=== PATIENT | female | born 1940 | race Caucasian/White ===

== ENCOUNTER 2020-04-10 03:55 | Emergency (ER) | payer MEDICARE, OTHER ==
[~2020-04-10] VITALS: Ht 162.6 cm; Wt 74.8 kg
--- OUTSIDE RECORDS SUMMARY | ~2020-04-10 | XMS | Clinical Summary ---
Demographics + + + | Address | [address] | | | [place] [address] | + + + | Home Phone | | + + + | Preferred Language | Unknown | + + + | Marital Status | | + + + | Christianity Affiliation | Unknown | + + + | Race | Unknown | + + + | Ethnic Group | Unknown | + + + Author + + + | Author | [facility] | | | and [place] | + + + | Organization | [facility] | | | and [place] [...] Team Providers + +------+ + | Care Cattle Knocker Name | Role | Phone | + [...] | | + + +-------+ + | Adult Annual | | | | | Wellness Visit | 8 | | | + + +-------+ + | Vaccine: Influenza | | | | | (Season Ended) | 0 | | | + + [...] + +--------+ | MEDICARE | MEDICA | [id number] | 04/06/20 | [phone] | | Medica | | | RE | | 07-Pre | 5 | | re | | | PART A | | sent | | | | | | AND B | | | | | | + +--------+ +--------+ + +--------+ | MODA | MODA | [id number] | 10/07/19 | [phone] | [address] | Indemn | | | HEALTH | | 17-Pre | 9 | [phone] | ity | | | MDCR | | sent | | [place], | | | | [place] | | | | [place] [address] | | + +--------+ +--------+ + +--------+ [...] al/Fam | | 1940 | [phone] | [place] | | | savita | | | 0 (Home) | [phone] | + +--------+ +--------+ + + Advance Directives + + + + + | Type | Date Recorded | Patient | Explanation | | | | Senior Project Engineer | | + + + + + | Power of | | | | | Mountain Services Manager | | | | + + + + + | Advance | | | | | Directive | | | | + + + + +"
--- OUTSIDE RECORDS SUMMARY | ~2020-04-10 | XMS | Encounter Summary ---
Demographics + + + | Address | [address] | | | [place] [address] | + + + | Home Phone | | + + + | Preferred Language | Unknown | + + + | Marital Status | | + + + | Pentecostal Affiliation | Unknown | + + + | Race | Unknown | + + + | Ethnic Group | Unknown | + + + Author + + + | Author | [facility] | | | and [place] | + + + | Organization | [facility] | | | and [place] | [...] Team Providers + +------+ + | Care Electrical Logging Operator Name | Role | Phone | + +------+ + | Allie Llanes | PCP | | | PA | | | + +------+ + Encounter Details +--------+---------+ + + + | Date | Type | Department | Care Team | Description | +--------+---------+ + + + | 05/01/ | Office | [facility] | Estefany Parikh [place] | Sensorineural | | 2018 | Visit | AUDIOLOGY AND | [facility] [address] | hearing loss (SNHL) | | | | HEARING AID SERVICES | [address] | of both ears | | | | [address] | [place] [address] | (Primary Dx) | | | | [address] [facility] | [phone] | | | | | [place] [address] | | | | | | [phone] | | | +--------+---------+ + + + [...] documented as of this encounter Progress Notes SanthoshEstefany childers, CCC-A - 05/01/2018 1:30 PM PDTReferring Provider: [...]
[~2020-04-10 03:55] MED LIST: ALLOPURINOL300 MG PO; ASPIRIN EC325 MG PO; CALCIUM500 M1 PO; CINNAMON500 MG PO; ESSENTIAL DAIL1 EACH PO; FELODIPINE ER10 MG PO; GLYCOTROL CAPS1 EACH PO; LOVASTATIN40 MG PO; LOVAZA1 GM PO; NIACIN500 MG PO; OMEPRAZOLE20 MG PO; TRIAMTERENE-HC1 EAC1 PO; VITAMIN C500 MG/15 PO
[2020-04-10] MEDS ORDERED: ASPIR 8181 MG PO (04:13)
[2020-04-10] MEDS ORDERED: LIPITOR20 MG PO (04:14)
[2020-04-10] MEDS ORDERED: PREDNISONE20 MG PO (04:26)
== END 2020-04-10 04:38 | disposition home or self-care (01) ==
LOC: ED 03:55
DX: M10.9 Gout, unspecified (principal); I10 Essential (primary) hypertension; E78.5 Hyperlipidemia, unspecified; K21.9 Gastro-esophageal reflux disease without esophagitis; Z87.891 Personal history of nicotine dependence; Z79.899 Other long term (current) drug therapy
CPT/HCPCS: 99283; J7512

== ENCOUNTER 2020-06-21 06:17 | Emergency (ER) | payer MEDICARE, OTHER ==
[~2020-06-21] VITALS: Ht 162.6 cm; Wt 70.3 kg
--- OUTSIDE RECORDS SUMMARY | ~2020-06-21 | XMS | Encounter Summary ---
Demographics + + + | Address | [address] | | | [place] [address] | + + + | Home Phone | | + + + | Preferred Language | Unknown | + + + | Marital Status | | + + + | Bahai Affiliation | Unknown | + + + | Race | White | + + + | Ethnic Group | Unknown | + + + Author + + + | Author | [facility] | | | and [place] | + + + | Organization | [facility] | | | and [place] [...] Team Providers + +------+ + | Care Magazine Supervisor Name | Role | Phone | + +------+ + | Allie Llanes | PCP | | | PA | | | + +------+ + Encounter Details +--------+---------+ + + + | Date | Type | Department | Care Team | Description | +--------+---------+ + + + | 05/01/ | Office | [facility] | Estefany Parikh MS | Sensorineural | | 2018 | Visit | AUDIOLOGY AND | [facility] [address] | hearing loss (SNHL) | | | | HEARING AID SERVICES | [address] | of both ears | | | | [address] | [place] [address] | (Primary Dx) | | | | [address] [facility] | [phone] | | | | | [place] [address] | | | | | | [phone] | | | +--------+---------+ + + + [...]
--- OUTSIDE RECORDS SUMMARY | ~2020-06-21 | XMS | Clinical Summary ---
Demographics + + + | Address | [address] | | | [place] [address] | + + + | Home Phone | | + + + | Preferred Language | Unknown | + + + | Marital Status | | + + + | Adventist Affiliation | Unknown | + + + | Race | White | + + + | Ethnic Group | Unknown | + + + Author + + + | Author | [facility] | | | and [place] | + + + | Organization | [facility] | | | and [...] Team Providers + +------+ + | Care Substation Mechanic Name | Role | Phone | + [...] + +--------+ | MEDICARE | MEDICA | [id number] | 04/06/20 | [phone] | | Medica | | | RE | | 07-Pre | 5 | | re | | | PART A | | sent | | | | | | AND B | | | | | | + +--------+ +--------+ + +--------+ | MODA | MODA | [id number] | 10/07/19 | [phone] | [address] | Indemn | | | HEALTH | | 17-Pre | 9 | [phone] | ity | | | MDCR | | sent | | [place], | | | | [place] | | | | [place] [address] | | + +--------+ +--------+ + +--------+ [...] [place] | | | 0 (Home) | [address] | + +--------+ +--------+ + + | Alexa Daniels | Person | Self | [birth year] | [address] | | | al/Fam | | 1940 | [phone] | [place] | | | [place] | | | 0 (Home) | [address] | + +--------+ +--------+ + + Advance Directives + + + + + | Type | Date Recorded | Patient | Explanation | | | | Director Data Architecture | | + + + + + | Power of | | | | | Case Finisher | | | | + + + + + | Advance | | | | | Directive | | | | + + + + +"
[~2020-06-21 06:17] MED LIST changes: +ASPIR 8181 MG PO; +LIPITOR20 MG PO; +PREDNISONE20 MG PO
[2020-06-21] MEDS ORDERED: ATORVASTATIN CA20 MG PO (06:31)
[2020-06-21] MEDS ORDERED: PREDNISONE20 MG PO (06:44)
== END 2020-06-21 07:03 | disposition home or self-care (01) ==
LOC: ED 06:17
DX: M10.9 Gout, unspecified (principal); I10 Essential (primary) hypertension; E78.5 Hyperlipidemia, unspecified; Z87.891 Personal history of nicotine dependence; Z79.899 Other long term (current) drug therapy; Z79.82 Long term (current) use of aspirin
CPT/HCPCS: 99283; J7512

== ENCOUNTER 2020-06-28 10:01 | Emergency (ER) | payer MEDICARE, OTHER ==
[~2020-06-28] VITALS: Ht 162.6 cm; Wt 70.3 kg
--- OUTSIDE RECORDS SUMMARY | ~2020-06-28 | XMS | Clinical Summary ---
Demographics + + + | Address | [address] | | | [place] [address] | + + + | Home Phone | | + + + | Preferred Language | Unknown | + + + | Marital Status | | + + + | Taoism Affiliation | Unknown | + + + | Race | White | + + + | Ethnic Group | Unknown | + + + Author + + + | Author | [facility] | | | and [place] | + + + | Organization | [facility] | | | and [place] | + + + | Address | Unknown | + + + | Phone | Unavailable | + + + Support + + +---------+ + | Name | Relationship | Address | Phone | + + +---------+ + | Wilbur Daniels | ECON | Unknown | | + + +---------+ + Care Team Providers + +------+ + | Care Cassandra Developer Name | Role | Phone | + +------+ + | Allie Llanes | PCP | | | PA | | | + +------+ + Allergies Not on File Medications Not on file Active Problems Not on file Social History + +-------+ +--------+------+ | Tobacco Use | Types | Packs/Day | Years | Date | | | | | Used | | + +-------+ +--------+------+ | Never Assessed | | | | | + +-------+ +--------+------+ + + + | Sex Assigned at | Date Recorded | | | | + + + | Not on file | | + + + Last Filed Vital Signs Not on file Plan of Treatment + + +-------+ + | Health Maintenance | Due Date | Last | Comments | | | | Done | | + + +-------+ + | Vaccine: | | | | | Dtap/Tdap/Td (1 - | 1 | | | | Tdap) | | | | + + +-------+ + | Vaccine: Zoster (1 | | | | | of 2) | 2 | | | + + +-------+ + | Breast Cancer | | | | | Screening | 7 | | | + + +-------+ + | Vaccine: | | | | | Pneumococcal 65+ (1 | 7 | | | | of 1 - PPSV23) | | | | + + +-------+ + | Vaccine: Influenza | | | | | (#1) | 0 | | | + + +-------+ + Results Not on filefrom Last 3 Months Insurance + +--------+ +--------+ + +--------+ | Payer | Benefi | Subscriber | Effect | Phone | Address | Type | | | t Plan | ID | elina | | | | | | / | | Dates | | | | | | Group | | | | | | + +--------+ +--------+ + +--------+ | MEDICARE | MEDICA | [id number] | 04/06/20 | [phone] | | Medica | | | RE | | 07-Pre | 5 | | re | | | PART A | | sent | | | | | | AND B | | | | | | + +--------+ +--------+ + +--------+ | MODA | MODA | [id number] | 10/07/19 | [phone] | [address] | Indemn | | | HEALTH | | 17-Pre | 9 | [phone] | ity | | | MDCR | | sent | | [place], | | | | [place] | | | | [place] [address] | | + +--------+ +--------+ + +--------+ + +--------+ +--------+ + + | Guarantor Name | Accoun | Relation to | Date | Phone | Billing Address | | | t Type | Patient | of | | | | | | | | | | + +--------+ +--------+ + + | Alexa Daniels | Person | Self [birth year] | [address] | | | al/Fam | | 1940 | [phone] | [place] | | | [place] | | | 0 (Home) | [address] | + +--------+ +--------+ + + | Alexa Daniels | Person | Self | [birth year] | [address] | | | al/Fam | | 1940 | [phone] | [place] | | | [place] | | | 0 (Home) | [address] | + +--------+ +--------+ + + Advance Directives + + + + + | Type | Date Recorded | Patient | Explanation | | | | Employee Development Manager | | + + + + + | Power of | | | | | Medical Field Representative | | | | + + + + + | Advance | | | | | Directive | | | | + + + + +"
--- OUTSIDE RECORDS SUMMARY | ~2020-06-28 | XMS | Encounter Summary ---
Demographics + + + | Address | [address] | | | [place] [address] | + + + | Home Phone | | + + + | Preferred Language | Unknown | + + + | Marital Status | | + + + | Religion Affiliation | Unknown | + + + | Race | White | + + + | Ethnic Group | Unknown | + + + Author + + + | Author | [facility] | | | and [place] | + + + | Organization | [facility] | | | and [place] | [...] Team Providers + +------+ + | Care Craft Recruiter Name | Role | Phone | + +------+ + | Allie Llanes | PCP | | | PA | | | + +------+ + Encounter Details +--------+---------+ + + + | Date | Type | Department | Care Team | Description | +--------+---------+ + + + | 05/01/ | Office | [facility] | Estefany Parikh MS | Sensorineural | | 2018 | Visit | AUDIOLOGY AND | [facility] [address] | hearing loss (SNHL) | | | | HEARING AID SERVICES | [address] [place] | of both ears | | | | [address] | [place] [address] | (Primary Dx) | | | | [address] [facility] | [phone] | | | | | [place] [address] | | | | | | [phone] | | | +--------+---------+ + + + Social History + +-------+ +--------+------+ | Tobacco [...] on file | | + + + documented as of this encounter Progress Notes JlEstefany, CCC-A - 05/01/2018 1:30 PM PDTReferring Provider: No additional provider found MEileen. Ms. Daniels had a sinus infection back in March. She is not hearing well. Results of Hearing Test: Right ear--Pure tone air and bone conduction testing showed a gent ly sloping 40-90dB threshold at 250 Hz through 8 KHz. Left ear --Pure tone air and bone conduction testing showed 60dB at 250 Hz, and 45-90+d B at 500 Hz through 8 KHz. Speech Recognition Thresholds were 40dB in the right ear and 45dB in the left ear. Speech Discrimination Scores were 100% in right ear and 88% in the left ear. Tympanometry showed normal type A tracings in both ears. Impression and Recommendation: A bilateral moderate sensory-neural hearing loss. Follow-up care with Dr. Acosta, ENT. Thank you. documented in thi s encounter Plan of Treatment Not on filedocumented as of this encounter Procedures + +--------+ + + + | Procedure Name | Priori | Date/Time | Associated Diagnosis | Comments | | | ty | | | | + +--------+ + + + | DIAGNOSTIC REPORT - | | 05/01/2018 | | Results for this | | EXTERNAL SCAN | | 12:00 AM | | procedure are in the | | | | PDT | | results section. | + +--------+ + + + documented in this encounter Results DIAGNOSTIC REPORT - EXTERNAL SCAN (05/01/2018 12:00 AM PDT) + + + | Narrative | Performed At | + + + | Ordered by an | | | unspecified provider. | | + + + documented in this encounter Visit Diagnoses + + | Diagnosis | + + | Sensorineural hearing loss (SNHL) of both ears - Primary | + + documented in this encounter"
[~2020-06-28 10:01] MED LIST changes: +ATORVASTATIN CA20 MG PO
--- OUTSIDE RECORDS SUMMARY | 2020-06-28 10:04 | XMS ---
PreManage Notification: RANDELL TORRES Security Legal Biller Events No recent Security Events currently on file CRITERIA MET - [facility] - 2 Visits in 30 Days CARE PROVIDERS There are no care providers on record at this time. Pal has no Care Guidelines for this patient. Autumn VISIT COUNT (12 MO.) 3 [facility] Stephan H. TOTAL 3 NOTE: Visits indicate total known visits. ED/[facility] VISIT TRACKING (12 MO.) 06/28/2020 10:[address] [facility] [address] [facility] [place] TYPE: Emergency COMPLAINT: - POSS HEART ATTACK, L ARM TINGLING/NUMBNESS 06/21/2020 06:17 [facility] [place] TYPE: Emergency COMPLAINT: - JOINT PAIN DIAGNOSES: - Hyperlipidemia, unspecified - skilled nursing (current) use of aspirin - Personal history of nicotine dependence - Essential (primary) hypertension - Gout, unspecified - Other prison (current) drug therapy 2020 03:56 [facility] [place] TYPE: Emergency COMPLAINT: - WRIST PAIN/NON INJURY DIAGNOSES: - Other rn long term care (current) drug therapy - Essential (primary) hypertension - Hyperlipidemia, unspecified - Personal history of nicotine dependence - Gout, unspecified - Pain in right wrist - Gastro-esophageal reflux disease without esophagitis INPATIENT VISIT TRACKING (12 MO.) No inpatient visits to display in this time frame [email or web address]
--- NOTE | 2020-06-29 14:56 | EKG ---
[facility] [address] [place], [place] [address] Signed Sinus rhythm with premature atrial complexes Otherwise normal ECG No previous ECGs available Confirmed by BOB JOEL MD ([id number]) on 06/29/2020 2:56:19 PM Electronically Signed By: BOB JOEL MD 06/29/20 1456 PATIENT NAME: RANDELL TORRES Electrocardiogram DATE OF : 44 PHYSICIAN: BOB JOEL MD REPORT #: [id number] REPORT IS CONFIDENTIAL AND NOT TO BE RELEASED WITHOUT AUTHORIZATION
== END 2020-06-28 13:37 | disposition home or self-care (01) ==
LOC: ED 10:01
DX: R07.9 Chest pain, unspecified (principal); I10 Essential (primary) hypertension; E78.5 Hyperlipidemia, unspecified; Z87.891 Personal history of nicotine dependence; Z79.899 Other long term (current) drug therapy; Z79.82 Long term (current) use of aspirin
CPT/HCPCS: 71045; 80053; 83735; 83880; 84484; 85025; 93005; 93010; 99285-25

== ENCOUNTER 2021-03-30 09:00 | Day surgery (SDC) | payer MEDICARE, OTHER ==
[~2021-03-30] VITALS: Ht 162.6 cm; Wt 73.0 kg
--- NOTE | 2021-03-30 11:53 | NUR ---
03/30/21 1153 Noris Zhang 1148 PATIENT ARRIVES TO PACU AWAKE BUT DROWSY. ASKING QUESTIONS APPROPRIATELY. RESP EVEN AND UNLABORED, NC OFF, ROOM AIR SATS >93%. DENIES PAIN OR NAUSEA.
--- NOTE | 2021-03-30 21:04 | OR ---
[facility] [address] [place], [place] [address] Signed DATE OF OPERATION: 03/30/2021 SURGEON: Britney Chavarria MD PREOPERATIVE DIAGNOSES: 1. Frequent and somewhat loose bowel movements. 2. Episodic rectal bleeding. 3. History of sigmoid diverticulitis (resolved). POSTOPERATIVE DIAGNOSIS: Extensive diverticular disease of sigmoid and left colon. PROCEDURE: Total colonoscopy to cecum. ANESTHESIA: Intravenous sedation; fentanyl 100 mcg and Versed 5 mg. INDICATION: This 80-year-old white woman is a patient Dr. Tamera Stone. She has had episodes of what appears clinically to be acute diverticulitis. Her symptoms have resolved with antibiotic therapy as prescribed by Dr. Stone. She does have episodic persistent rectal bleeding of unknown etiology, however. She last underwent colonoscopy by co in 2014 showing diverticulosis and a small polyp of the rectum, which was found to be hyperplastic. She had rectal bleeding as early as 2001, at which time, colonoscopy showed only diverticulosis and a diminutive polyp of the rectum. She has had several colonoscopies since that time, never showing adenomatous polyps. She is admitted at this time to undergo colonoscopy on the basis of her loose bowel movements and episodes of rectal bleeding. She understands the risks of bleeding, infection, and perforation related to colonoscopy and wished to proceed. FINDINGS: The prep was good. Complete colonoscopy was undertaken of the cecum without question. She had no evidence of colitis. She did have some extensive grade 4 hemorrhoidal changes. Numerous diverticula are seen in the sigmoid and left colon. There was no sign of polyps or colitis proper. DESCRIPTION OF PROCEDURE: The patient was brought to the endoscopy suite and placed in lateral decubitus position given intravenous sedation to the point of slurred speech and nystagmus. Digital rectal Electronically Signed By: BRITNEY CHAVARRIA MD 03/30/21 2104 PATIENT NAME: RANDELL TORRES OPERATIVE REPORT DATE OF : 44 REPORT #: [id number] PHYSICIAN: BRITNEY CHAVARRIA MD PCP: TAMERA STONE MD REPORT IS CONFIDENTIAL AND NOT TO BE RELEASED WITHOUT AUTHORIZATION [facility] [address] [place], [place] [address] Signed examination was normal except for external hemorrhoidal changes, which were significant. There was no sign of thrombosis. No sign of bleeding. After satisfactory intravenous sedation and rectal examination with findings as noted. An Olympus video colonoscope was passed in the rectum and manipulated throughout the colon ultimately intubating the cecum. Numerous diverticula were noted of the sigmoid and left colon, which made passage through this area somewhat delayed initially, but safely accomplished. The cecum was fully intubated and the ileocecal valve and appendiceal orifice were normal. Irrigation of the scope was then withdrawn. Careful withdrawal of scope showed no sign of abnormality throughout the colon other than the diverticulosis. Retroflexed view did not show extensive internal hemorrhoidal changes, but she certainly did have significant external hemorrhoidal disease. The scope was removed and the patient taken to the recovery room in good condition. CONCLUDING DIAGNOSES: 1. Uncertain etiology of loose bowel movements. Diverticulosis more commonly would manifest as constipation, though it is still a possibility that accounts for bowel symptoms. Her external hemorrhoids may well account for other issues and a component of internal hemorrhoidal change could account for bleeding. 2. At this point, we would recommend Citrucel or Metamucil one scoop daily. If she still has loose bowel movements, consideration to initiate Questran would be undertaken. She will return to the ongoing care of Dr. Stone in the meantime. If further evaluation is needed, happy to see her again. MD MARIO Ulrich/JESSICAL /[id number] cc: Tamera Stone MD Copies: Electronically Signed By: BRITNEY CHAVARRIA MD 03/30/214 PATIENT NAME: RANDELL TORRES OPERATIVE REPORT DATE OF : 44 REPORT #: [id number] PHYSICIAN: BRITNEY CHAVARRIA MD PCP: TAMERA STONE MD REPORT IS CONFIDENTIAL AND NOT TO BE RELEASED WITHOUT AUTHORIZATION [facility] [address] [place], [place] [address] Signed ~ Electronically Signed By: BRITNEY CHAVARRIA MD 03/30/214 PATIENT NAME: RANDELL TORRES OPERATIVE REPORT DATE OF : 44 REPORT #: [id number] PHYSICIAN: BRITNEY CHAVARRIA MD PCP: TAMERA STONE MD REPORT IS CONFIDENTIAL AND NOT TO BE RELEASED WITHOUT AUTHORIZATION
== END 2021-03-30 12:20 | disposition home or self-care (01) ==
LOC: OPS 09:00 → DS 09:00 → OPS 10:00 → DS 11:00 → OPS 12:00 → DS 14:00
PROVIDERS: ATTEND Surgery
PROC: 0DJD8ZZ Inspection of Lower Intestinal Tract, Via Natural or Artificial Opening Endoscopic (ICD-10-PCS; principal; 2021-03-30 10:00)
DX: K57.31 Diverticulosis of large intestine without perforation or abscess with bleeding (principal); D64.9 Anemia, unspecified; K21.9 Gastro-esophageal reflux disease without esophagitis; I10 Essential (primary) hypertension; M10.9 Gout, unspecified; E78.5 Hyperlipidemia, unspecified; Z87.891 Personal history of nicotine dependence; Z79.82 Long term (current) use of aspirin; Z90.711 Acquired absence of uterus with remaining cervical stump; K64.3 Fourth degree hemorrhoids
CPT/HCPCS: 99153; G0500; J2250; J3010; J7121

== ENCOUNTER 2021-12-28 08:26 | Emergency (ER) | payer MEDICARE, OTHER ==
[~2021-12-28] VITALS: Ht 162.6 cm; Wt 72.6 kg
[2021-12-28] MEDS ORDERED: METOPROLOL SUCC25 MG PO (09:32)
[2021-12-28] MEDS ORDERED: PROTONIX20 MG PO (15:32)
[2021-12-28] MEDS ORDERED: PLAVIX75 MG PO (15:32)
--- NOTE | 2021-12-29 14:54 | EKG ---
[facility] [address] [place] [address] Signed Sinus bradycardia Otherwise normal ECG When compared with ECG of 28-JUN-2020 10:10, premature atrial complexes are no longer present Vent. rate has decreased BY 29 BPM Confirmed by BOB JOEL MD ([id number]) on 12/29/2021 2:54:08 PM Electronically Signed By: BOB JOEL MD 12/29/21 1454 PATIENT NAME: PRAVEENA TORRESN DEBBIE Electrocardiogram DATE OF : 44 PHYSICIAN: BOB JOEL MD REPORT #: [id number] REPORT IS CONFIDENTIAL AND NOT TO BE RELEASED WITHOUT AUTHORIZATION
== END 2021-12-28 16:03 | disposition home or self-care (01) ==
LOC: ED 08:26
DX: G45.9 Transient cerebral ischemic attack, unspecified (principal); I10 Essential (primary) hypertension; E78.5 Hyperlipidemia, unspecified; M19.90 Unspecified osteoarthritis, unspecified site; K21.9 Gastro-esophageal reflux disease without esophagitis; Z87.891 Personal history of nicotine dependence; Z79.899 Other long term (current) drug therapy; Z79.82 Long term (current) use of aspirin; Z20.822 Contact with and (suspected) exposure to COVID-19
CPT/HCPCS: 70450; 70496; 70498; 70551; 71045; 80053; 85025; 85610; 85730; 93005; 93010; 93306; 99284-25; C9803; Q9967; U0003

== ENCOUNTER 2023-09-02 16:57 | Emergency (ER) | payer MEDICARE, OTHER ==
[~2023-09-02] VITALS: Ht 162.6 cm; Wt 76.2 kg
[~2023-09-02 16:57] MED LIST changes: +METOPROLOL SUCC25 MG PO; +PLAVIX75 MG PO; +PROTONIX20 MG PO
[2023-09-02 19:01] LABS: BILIRUBIN, URINE NEGATIVE (negative); BLOOD/HGB, URINE NEGATIVE (Negative); KETONE, URINE NEGATIVE (Negative); LEUK ESTERASE, URINE SMALL (negative); NITRITE, URINE NEGATIVE (negative); PH, URINE 5.5 (5-7)
[2023-09-02 19:07] LABS: CRYSTALS, URINE NONE SEEN (0-1+); EPITHELIAL CELLS, URINE SQUAMOUS 1+ /lpf (0-1+); RED BLOOD CELLS, URINE 0-1 /hpf (0-5)
[2023-09-02 19:08] LABS: BACTERIA, URINE RARE /hpf (negative); CASTS, URINE NONE SEEN \\lpf; COLLECTION TYPE, URINE CLEAN CATCH; REFLEX CULTURE, URINE No (No)
[2023-09-02] MEDS ORDERED: CELEBREX200 MG PO (19:39)
[2023-09-02 21:12] LABS: BASOPHILS 0.7 % (0-2); EOSINOPHILS 3.7 % (0-6); HEMATOCRIT 37.8 % (35.0-50.0); HEMOGLOBIN 12.4 g/dL (12.0-18.0); LYMPHOCYTES 15.4 % (24-44); MCH 30.1 (27-36); MCHC 32.9 g/dl (30-36); MCV 91.6 fl (81-99); MONOCYTES 9.3 % (0-12); NEUTROPHILS 70.9 % (39-80); PLATELET COUNT 332 K/uL (140-440); RBC 4.13 M/ul (4.3-5.7); RDW 14.9 (10.5-15.0)
[2023-09-02 21:33] LABS: ALBUMIN 3.9 g/dL (3.4-5.0); ALBUMIN/GLOBULIN RATIO 0.85 (1.1-2.4); ANION GAP 18.1 (7-21); BILIRUBIN, TOTAL 0.5 ng/dL (0.2-1.0); BUN/CREATININE RATIO 19.44 (6.0-28.6); CALCIUM 9.3 mg/dL (8.5-10.1); CREATININE, SERUM 1.44 mg/dL (0.55-1.02); POTASSIUM 4.1 mmol/L (3.5-5.1); PROTEIN, TOTAL 8.5 g/dL (6.4-8.2)
[2023-09-02] MEDS ORDERED: HYDROCODON-ACE1 EA10 PO (22:39)
[2023-09-02 22:50] VITALS: BP 114/73
== END 2023-09-02 22:51 | disposition home or self-care (01) ==
LOC: ED 16:57
PROVIDERS: Emergency Medicine
DX: R10.9 Unspecified abdominal pain (principal); I12.9 Hypertensive chronic kidney disease with stage 1 through stage 4 chronic kidney disease, or unspecified chronic kidney disease; N18.9 Chronic kidney disease, unspecified; Z87.891 Personal history of nicotine dependence; Z79.899 Other long term (current) drug therapy; Z79.82 Long term (current) use of aspirin
CPT/HCPCS: 36415; 74177; 80053; 81001; 83690; 85025; A9270; J1170; J2405; J7030; Q9967

== ENCOUNTER 2025-04-27 08:17 | Emergency (ER) | payer MEDICARE, OTHER ==
[~2025-04-27] VITALS: Ht 162.6 cm; Wt 71.6 kg
[~2025-04-27 08:17] MED LIST changes: +CELEBREX200 MG PO; +HYDROCODON-ACE1 EA10 PO
[2025-04-27] MEDS ORDERED: JARDIANCE10 MG PO (08:33)
[2025-04-27] MEDS ORDERED: HYDROCODON-ACE1 EA10 PO (09:55)
[2025-04-27 10:05] VITALS: BP 126/66
== END 2025-04-27 10:05 | disposition home or self-care (01) ==
LOC: ED 08:17
DX: M71.22 Synovial cyst of popliteal space [Baker], left knee (principal); I10 Essential (primary) hypertension; E78.5 Hyperlipidemia, unspecified; Z90.710 Acquired absence of both cervix and uterus; Z79.82 Long term (current) use of aspirin; Z79.2 Long term (current) use of antibiotics; Z79.899 Other long term (current) drug therapy; Z87.891 Personal history of nicotine dependence
CPT/HCPCS: 73560; 93971; 99284-25